=== PATIENT | male | born 1935 | race Caucasian/White ===

== ENCOUNTER 2016-09-19 12:09 | Emergency (ER) | payer MEDICARE, BC ==
[~2016-09-19] VITALS: Ht 180.3 cm; Wt 98.0 kg
[~2016-09-19 12:09] MED LIST: ASPI81 PO; LEVO25TA36 PO; SIMV5TAB3 OR; TOPR25TA2 PO
[2016-09-19 12:22] VITALS: BP 120/62; PULSE 52; RESP 16; TEMP 97.4; O2SAT 96
--- NOTE | 2016-09-19 12:32 | PD ---
HPI Chief Complaint: Musculoskeletal Complaint Time Seen by Provider: 12:32 Travel History International Travel<30 days: No Contact w/Intl Traveler<30days: No Traveled to known affect area: No History of Present Illness HPI 80-year-old male with a history of hypertension, hyperlipidemia, CAD, CVA presents to the emergency department for evaluation of left foot injury that occurred yesterday. Patient states that he was carrying his trash can back toward his house from the road and the then fell to the side causing him to lose balance and his left foot to roll laterally. States that when this occurred he felt a "pop" in his foot. States that he has had pain and swelling in the foot since this occurred. Pain is aggravated with weightbearing and movement. Denies any fever, chills, nausea, vomiting, numbness or tingling, weakness. Prior treatment includes application of ice and elevation. No prior injury or trauma to this foot or ankle. No other complaints. PFSH Past Medical History AAA: Yes Heart Rhythm Problems: Yes Cardiac Catheterization: Yes High Cholesterol: Yes Diminished Hearing: No Hypertension: Yes Thyroid Disease: Yes Past Surgical History Abdominal Aneurysm Repair: Yes Abdominal Surgery: Yes (KYARA HERNIA REPAIR) Cardiac Surgery: Yes (LEFT ENDARTERCETOMY) Genitourinary Surgery: Yes (LEFT TESTICLE REMOVED) Social History Alcohol Use: No Tobacco Use: No Allergies-Medications (Allergen,Severity, Reaction): Coded Allergies: No Known Allergies (Verified , 09/19/16) Reported Meds & Prescriptions Reported Meds & Active Scripts Active Reported Simvastatin 20 Mg Tab 20 Mg PO HS Vitamin D3 (Cholecalciferol) 400 Unit Cap 400 Units PO DAILY Aspirin 81 Mg Tabdr 81 Mg PO DAILY Metoprolol Succinate ER 24 HR (Metoprolol Succinate) 100 Mg Tab 100 Mg PO DAILY Levothyroxine (Levothyroxine Sodium) 50 Mcg Tab 50 Mcg PO DAILY Omeprazole 20 Mg Tab 20 Mg PO DAILY Review of Systems Except as stated in HPI: all other systems reviewed are Neg Physical Exam Narrative GENERAL: Well-nourished and well-developed pleasant male patient in no acute distress who is nontoxic appearing. SKIN: Warm and dry. HEAD: Normocephalic and atraumatic. EYES: No injection, drainage, or hyphema noted. PERRLA. EOMI. ENT: No nasal drainage noted. Oropharynx is clear. NECK: Supple and the trachea is midline. CARDIOVASCULAR: Regular rate and rhythm. RESPIRATORY: Breath sounds are equal bilaterally with no accessory muscle use, wheezing, rhonchi, or crackles. EXTREMITY: The left foot is swollen and tender over the dorsal lateral aspect with some mild ecchymosis. The skin is intact and there is no ligamentous instability. Full range of motion in the left ankle, eversion does elicit pain in the foot. There is no deformity. The foot and toes are warm and well- perfused. Sensation to pain and light touch is intact. NEUROLOGICAL: Awake, alert, and oriented. Normal speech and gait. Cranial nerves are grossly intact. Data Data Last Documented VS Vital Signs Date Time Temp Pulse Resp B/P Pulse Ox O2 Delivery O2 Flow Rate FiO2 09/19/16 12:22 97.4 52 16 120/62 96 Orders Foot, Complete ([id number]) (09/19/16 12:32) Ice/Cold Pack (09/19/16 12:32) Splint Or Brace Apply/Monitor (09/19/16 13:00) [facility] Medical Decision Making Medical Screen Exam Complete: Yes Emergency Medical Condition: Yes Differential Diagnosis Sprain versus contusion versus fracture Narrative Course 80-year-old male presents to the emergency department for evaluation of left foot injury that occurred yesterday. Patient is afebrile, vital signs are stable. Patient's left lower extremity is neurovascularly intact. X-ray imaging has been ordered and is pending. X-ray imaging shows a nondisplaced left proximal fifth metatarsal fracture. Patient is placed in a posterior short leg splint. He has a walker at home that he can use for ambulation. The patient is already following up with Dr. Abreu bait digger regarding an onychomycosis, he agrees to call her and set up a sooner appointment for this foot fracture. Discussed supportive care and when to return to the emergency department. Patient verbalizes understanding and agreement with treatment plan. I discussed the case with my attending physician Dr. Hoover who is aware of the patients history, physical examination findings, and treatment plan. Diagnosis Primary Impression: Nondisplaced fracture of fifth left metatarsal bone Qualified Code: S92.355A - Closed nondisplaced fracture of fifth metatarsal bone of left foot, initial encounter Referrals: [facility] Patient Instructions: Foot Fracture in Adults (ED), General Instructions Additional Instructions: Keep left foot elevated. Use walker for ambulation. Apply ice for 20 minutes on, 20 minutes off. Take [id number] tylenol as directed on the box as needed for pain. Follow-up with your bait digger. Return to the ED for any acute worsening of symptoms. Med/Other Pt SpecificInfo: No Change to Meds Disposition: 01 DISCHARGE HOME Condition: Stable Sharon Valero Sep 19, 2016 12:32
[2016-09-19] MEDS ORDERED: ASPI1TAB69 PO (12:33)
[2016-09-19] MEDS ORDERED: CHOL1CAP8 PO (12:33)
[2016-09-19] MEDS ORDERED: OMEP20TA PO (12:33)
[2016-09-19] MEDS ORDERED: SIMV20TA PO (12:33)
[2016-09-19] MEDS ORDERED: LEVO50TA4 PO (12:33)
[2016-09-19] MEDS ORDERED: METO100T9 PO (12:33)
--- NOTE | 2016-09-19 14:09 | RADHPO ---
EXAM DATE/TIME: 09/19/2016 12:43 [facility] COMPARISON: No previous studies available for comparison. INDICATIONS : Left lateral foot pain and bruising from twisting foot last night. MEDICAL HISTORY : None. SURGICAL HISTORY : None. ENCOUNTER: Initial ACUITY: 1 day PAIN SCORE: 8/10 LOCATION: Left lateral foot. FINDINGS: There is an acute transverse fracture of the proximal aspect of the fifth metatarsal. No other possible fracture is seen. The bones and joints are normally aligned. There is a calcaneal spur at the plantar aponeurosis attachment site at the posterior inferior calcaneus. CONCLUSION: Acute fracture at the proximal aspect of the fifth metatarsal. Austin Hdez MD on September 19, 2016 at 13:58 Board Certified Radiologist. This report was verified electronically.
== END 2016-09-19 14:24 | disposition home or self-care (01) ==
LOC: PHEFT 12:09
DX: S92.355A Nondisplaced fracture of fifth metatarsal bone, left foot, initial encounter for closed fracture (principal); I10 Essential (primary) hypertension; E78.00 Pure hypercholesterolemia, unspecified; B35.1 Tinea unguium; W01.0XXA Fall on same level from slipping, tripping and stumbling without subsequent striking against object, initial encounter; Y93.89 Activity, other specified; Y92.89 Other specified places as the place of occurrence of the external cause; Y99.8 Other external cause status
CPT/HCPCS: 29515; 73630

== ENCOUNTER 2018-02-26 15:13 | Emergency (ER) | payer MEDICARE, BC ==
[~2018-02-26] VITALS: Ht 177.8 cm; Wt 94.5 kg
[~2018-02-26 15:13] MED LIST changes: +ASPI1TAB69 PO; -ASPI81 PO; +CHOL1CAP8 PO; -LEVO25TA36 PO; +LEVO50TA4 PO; +METO1TAB43 PO; +OMEP20TA93 PO; +SIMV20TA PO; -SIMV5TAB3 OR; -TOPR25TA2 PO
[2018-02-26 15:18] VITALS: BP 135/64; PULSE 52; RESP 16; TEMP 98.9; O2SAT 95
[2018-02-26] MEDS ORDERED: GABA300C5 PO (15:45)
--- NOTE | 2018-02-26 15:52 | PD ---
HPI Chief Complaint: Musculoskeletal Complaint Time Seen by Provider: 15:41 Travel History International Travel<30 days: No Contact w/Intl Traveler<30days: No Traveled to known affect area: No History of Present Illness HPI This patient was pushing a shopping cart in [facility] and he started to get lightheaded and dizzy and developed weakness. His weakness was somewhat generalized and included both of his legs. It was not unilateral in any way. He sat down on the ground and eventually symptoms resolved. He did not have syncope or injury. It lasted about 10 minutes and gradually faded. Symptoms are alleviated by sitting down. No exacerbating factors. He did not have any chest pain. Symptom severity was moderate. PFSH Past Medical History AAA: Yes Heart Rhythm Problems: Yes Cardiac Catheterization: Yes High Cholesterol: Yes Cerebrovascular Accident: Yes Coronary Artery Disease: Yes Diminished Hearing: No GERD: Yes Hypertension: Yes Immunizations Current: Yes Thyroid Disease: Yes Tetanus Vaccination: Unknown Influenza Vaccination: No Past Surgical History Abdominal Aneurysm Repair: Yes Abdominal Surgery: Yes (KYARA HERNIA REPAIR) Cardiac Surgery: Yes (LEFT ENDARTERCETOMY) Genitourinary Surgery: Yes (LEFT TESTICLE REMOVED, TURP X 2) Social History Alcohol Use: No Tobacco Use: No Substance Use: No Allergies-Medications (Allergen,Severity, Reaction): Coded Allergies: No Known Allergies (Verified Adverse Reaction, Unknown, 02/26/18) Reported Meds & Prescriptions Reported Meds & Active Scripts Active Reported Gabapentin 300 Mg Cap 300 Mg PO BID Simvastatin 20 Mg Tab 20 Mg PO HS Aspirin 81 Mg Tabdr 81 Mg PO DAILY Metoprolol Succinate ER 24 HR (Metoprolol Succinate) 100 Mg Tab 100 Mg PO DAILY Levothyroxine (Levothyroxine Sodium) 50 Mcg Tab 50 Mcg PO DAILY Review of Systems General / Constitutional: No: Fever Eyes: No: Visual changes HENT: Positive: Lightheadedness, No: Headaches Cardiovascular: No: Chest Pain or Discomfort Respiratory: No: Shortness of Breath Gastrointestinal: No: Abdominal Pain Genitourinary: No: Dysuria Musculoskeletal: Positive: Weakness, No: Pain Skin: No Rash Neurologic: Positive: Weakness, Dizziness Psychiatric: No: Depression Endocrine: No: Polydipsia Hematologic/Lymphatic: No: Easy Bruising Physical Exam Narrative GENERAL: Well-nourished, well-developed patient in no apparent distress. SKIN: Focused skin assessment reveals no rash and nodules. Skin is Warm and dry. HEAD: Atraumatic. Normocephalic. EYES: Pupils equal and round. No scleral icterus. No injection or drainage. ENT: No nasal bleeding or discharge. Mucous membranes pink and moist. NECK: Trachea midline. No JVD. CARDIOVASCULAR: Regular rate and rhythm. No murmur appreciated. RESPIRATORY: No accessory muscle use. Clear to auscultation. Breath sounds equal bilaterally. GASTROINTESTINAL: Abdomen soft, non-tender, nondistended. Hepatic and splenic margins not palpable. MUSCULOSKELETAL: No obvious deformities. No clubbing. No cyanosis. No edema. NEUROLOGICAL: Awake and alert. No obvious cranial nerve deficits. Motor grossly within normal limits. Normal speech. PSYCHIATRIC: Appropriate mood and affect; insight and judgment normal. Data Data Last Documented VS Vital Signs Date Time Temp Pulse Resp B/P (MAP) Pulse Ox O2 Delivery O2 Flow Rate FiO2 02/26/18 18:58 51 18 157/65 (95) 96 Room Air 02/26/18 15:18 98.9 Orders Orders Electrocardiogram (02/26/18 15:50) Prothrombin Time / Inr (Pt) (02/26/18 15:50) Act Partial Throm Time (Ptt) (02/26/18 15:50) Complete Blood Count With Diff (02/26/18 15:50) Basic Metabolic Panel (Bmp) (02/26/18 15:50) Ct Brain W/O Iv Contrast(Rout) (02/26/18 15:50) Ecg Monitoring (02/26/18 15:50) Iv Access Insert/Monitor (02/26/18 15:50) Oximetry (02/26/18 15:50) Blood Glucose (02/26/18 15:50) Sodium Chloride 0.9% Flush (Ns Flush) (02/26/18 16:00) Sodium Chlorid 0.9% 500 Ml Inj (Ns 500 M (02/26/18 17:15) Labs Laboratory Tests Test 02/26/18 16:14 White Blood Count 6.8 TH/MM3 Red Blood Count 4.60 MIL/MM3 Hemoglobin 14.9 GM/DL Hematocrit 44.3 % Mean Corpuscular Volume 96.1 FL Mean Corpuscular Hemoglobin 32.4 PG Mean Corpuscular Hemoglobin Concent 33.7 % Red Cell Distribution Width 13.3 % Platelet Count 144 TH/MM3 Mean Platelet Volume 8.3 FL Neutrophils (%) (Auto) 72.3 % Lymphocytes (%) (Auto) 14.3 % Monocytes (%) (Auto) 8.7 % Eosinophils (%) (Auto) 4.1 % Basophils (%) (Auto) 0.6 % Neutrophils # (Auto) 4.9 TH/MM3 Lymphocytes # (Auto) 1.0 TH/MM3 Monocytes # (Auto) 0.6 TH/MM3 Eosinophils # (Auto) 0.3 TH/MM3 Basophils # (Auto) 0.0 TH/MM3 CBC Comment DIFF FINAL Differential Comment Prothrombin Time 10.8 SEC Prothromb Time International Ratio 1.1 RATIO Activated Partial Thromboplast Time 26.4 SEC Blood Urea Nitrogen 25 MG/DL Creatinine 1.20 MG/DL Random Glucose 90 MG/DL Calcium Level 9.0 MG/DL Sodium Level 138 MEQ/L Potassium Level 4.4 MEQ/L Chloride Level 104 MEQ/L Carbon Dioxide Level 25.1 MEQ/L Anion Gap 9 MEQ/L Estimat Glomerular Filtration Rate 58 ML/MIN [facility] Medical Decision Making Medical Screen Exam Complete: Yes Emergency Medical Condition: Yes Medical Record Reviewed: Yes Differential Diagnosis Symptomatic bradycardia, vasovagal episode, dehydration Narrative Course I have reviewed the patient's electronic medical record. IV placed and labs sent I reviewed his EKG which shows sinus bradycardia without ectopy Extended cardiac monitoring shows sinus bradycardia around 50. Patient states that low heart rate is common for him Brain CT shows old area of encephalopathy which is not acute Patient has no neurologic deficit on exam. His symptoms were diffuse and symmetric and not consistent with acute CVA. CBC and metabolic studies are reasonably normal. We ambulated him in the department and he did well I have recommended walker just to make sure he has extra support Recommend primary care follow-up. Recommend he cut his beta-jhonatan in half given his bradycardia. It does not drop his blood pressure and it is chronic according to the patient. He does have history of neuropathy in his legs which could be contributing Diagnosis Primary Impression: Generalized weakness Additional Impressions: Peripheral neuropathy Qualified Codes: G62.9 - Polyneuropathy, unspecified Sinus bradycardia Additional Instructions: Check and record heart rate and blood pressure daily Cut metoprolol in half The patient was advised to follow up with their physician and return if they worsen. Use walker all the time Disposition: 01 DISCHARGE HOME Condition: Stable Marquis Rhodes MD Feb 26, 2018 15:52
[2018-02-26] MEDS ORDERED: SODIUM CHLORIDE 0.9% FLUSH 10 ML FLUSH IVF PRN (16:00)
[2018-02-26 16:11] VITALS: O2SAT 98
[2018-02-26 16:22] LABS: AUTOMATED NEUTROPHIL # 4.9 TH/MM3 (1.8-7.7); BASOPHIL % 0.6 % (0.0-2.0); EOSINOPHIL # 0.3 TH/MM3 (0-0.4); EOSINOPHIL % 4.1 % (0.0-4.0); HEMATOCRIT 44.3 % (39.0-51.0); HEMOGLOBIN 14.9 GM/DL (13.0-17.0); LYMPH % 14.3 % (9.0-44.0); MEAN CELL VOLUME 96.1 FL (80.0-100.0); MEAN CORPUSCULAR HEMOGLOBIN 32.4 PG (27.0-34.0); MEAN CORPUSCULAR HGB CONC 33.7 % (32.0-36.0); MEAN PLATELET VOLUME 8.3 FL (7.0-11.0); MONO % 8.7 % (0.0-8.0); MONOCYTE # 0.6 TH/MM3 (0-0.9); NEUT % 72.3 % (16.0-70.0); PLATELET COUNT 144 TH/MM3 (150-450); RED CELL DISTRIBUTION WIDTH 13.3 % (11.6-17.2); WHITE BLOOD COUNT 6.8 TH/MM3 (4.0-11.0)
[2018-02-26 16:33] LABS: BICARBONATE 25.1 MEQ/L (21.0-32.0)
[2018-02-26 16:36] LABS: CREATININE 1.2 MG/DL (0.60-1.30)
[2018-02-26 16:40] LABS: INTERNATIONAL NORMALIZED RATIO 1.1 RATIO; PROTHROMBIN TIME - PATIENT 10.8 SEC (9.8-11.6)
[2018-02-26] MEDS ORDERED: SODIUM CHLORID 0.9% 500 ML INJ 500 ML IV SCH (17:15)
--- NOTE | 2018-02-26 17:46 | RADRPT ---
EXAM DATE: 02/26/2018 5:38 PM EDT AGE/SEX: 82 years / Male INDICATIONS: Bilateral leg weakness. CLINICAL DATA: This is the patient's initial encounter. Patient reports that signs and symptoms have been present for 1 day and indicates a pain score of 0/10. MEDICAL/SURGICAL HISTORY: Aneurysm, abdominal. Cerebrovascular disease. Gastroesophageal reflux d isease. Hypertension. Carotid endarterectomy. Abdominal aortic aneurysm repair. Left orchiectomy. RADIATION DOSE: 58.17 CTDI (mGy) COMPARISON: No prior exams available for comparison. TECHNIQUE: CT of the head without contrast. Using automated exposure control and adjustment of the mA and/or kV according to patient size, radiation dose was kept as low as reasonably achievable to ob tain optimal diagnostic quality images. DICOM format image data is available electronically for revi ew and comparison. FINDINGS: Cerebrum: There is mild generalized atrophy and ventricles are normal given the degree of atrophy. M ild periventricular white matter change is present. There is encephalomalacia in the left occipitopar ietal region and left posterior temporal lobe. No midline shift, mass lesion, hemorrhage or acute inf arction. No extraaxial fluid collections are seen. Posterior Fossa: The cerebellum and brainstem demonstrate no acute abnormality. The 4th ventricle is midline. The cerebellopontine angle is within normal limits. Extracranial: The visualized sinuses are clear. Skull: The calvaria is intact. No skull fracture. CONCLUSION: 1. No acute intracranial abnormality is identified. 2. There is encephalomalacia in the left posterior temporal lobe and left parieto-occipital region. This may be related to old ischemia. Electronically signed by: Austin Roque MD 02/26/2018 5:44 PM EDT
[2018-02-26 18:58] VITALS: BP 157/65; PULSE 51; RESP 18; O2SAT 96
--- NOTE | 2018-02-27 21:01 | EKG ---
Date Performed: 02/26/2018 Time Performed: 18:51:10 PTAGE: 82 years EKG: SINUS BRADYCARDIA NONSPECIFIC T-WAVE ABNORMALITY BORDERLINE ECG PREVIOUS TRACING : 02/26/2018 15.56 Since the previous tracing, no significant change noted DOCTOR: Aj Bledsoe Interpretating Date/Time 02/27/2018 21:00:26
--- NOTE | 2018-02-27 21:25 | EKG ---
Date Performed: 02/26/2018 Time Performed: 15:56:58 PTAGE: 82 years EKG: SINUS BRADYCARDIA WITH SINUS ARRHYTHMIA LEFT AXIS NONSPECIFIC T WAVE CHANGES BORDERLINE ECG NO PREVIOUS TRACING DOCTOR: Aj Bledsoe Interpretating Date/Time 02/27/2018 21:23:34
== END 2018-02-26 19:40 | disposition home or self-care (01) ==
LOC: PHED 15:13
DX: R53.1 Weakness (principal); G62.9 Polyneuropathy, unspecified; R00.1 Bradycardia, unspecified; E07.9 Disorder of thyroid, unspecified; E78.00 Pure hypercholesterolemia, unspecified; I10 Essential (primary) hypertension
CPT/HCPCS: 70450; 80048; 85025; 85610; 85730; 93005; 96360; 99285; J7040